=== PATIENT | female | born 1995 | race Two or more races ===

== ENCOUNTER 2022-08-18 08:55 | Day surgery (SDC) | payer MEDICAID ==
[~2022-08-18] VITALS: Ht 154.9 cm; Wt 53.8 kg
[2022-08-18] VITALS (18 sets, daily range): BP systolic 92–147; BP diastolic 40–87
[2022-08-18] MEDS ORDERED: OLAN2.5T28 PO (09:35)
[2022-08-18] MEDS ORDERED: CANNABIS (09:35)
[2022-08-18] MEDS ORDERED: POLY17PO10 PO (09:35)
[2022-08-18] MEDS ORDERED: ONDA-104 PO (09:35)
[2022-08-18] MEDS ORDERED: OMEP40CA21 PO (09:35)
[2022-08-18] MEDS ORDERED: IBUPROFEN 400 MG (09:36)
[2022-08-18] MEDS ORDERED: CHOL20002 PO (09:37)
[2022-08-18] MEDS ORDERED: chemotherapy (09:38)
[2022-08-18] MEDS ORDERED: normal saline 1000ml 1,000 ML IV SCH (09:55)
[2022-08-18 10:05] LABS: BASOPHILS # (AUTO) 0.1 X10'3 (0-0.2); BASOPHILS % (AUTO) 0.2 % (0-1); EOSINOPHILS % (AUTO) 0 % (0-6); HEMATOCRIT 33.3 % (35.0-45.0); LYMPHOCYTES % (AUTO) 4.4 % (21-51); MEAN CORPUSCULAR HEMOGLOBIN 29.1 PG (27.0-31.0); MEAN CORPUSCULAR HGB CONC 32.9 g/dL (33.0-36.5); MEAN CORPUSCULAR VOLUME 88.5 FL (78-98); MEAN PLATELET VOLUME 7.5 FL (7.4-10.4); MONOCYTES # (AUTO) 1.3 X10'3 (0-0.9); MONOCYTES % (AUTO) 5.6 % (2-12); NEUTROPHILS # (AUTO) 20.7 X10'3 (1.8-7.7); NEUTROPHILS % (AUTO) 89.8 % (42-75); PLATELET COUNT 195 X10'3 (140-440); RED BLOOD COUNT 3.76 X10'6 (4.20-5.60); RED CELL DISTRIBUTION WIDTH 20.9 % (11.5-14.5); WHITE BLOOD COUNT 23.1 X10'3 (4.5-11.0)
[2022-08-18] MEDS ORDERED: PEGF6DIS2 SQ (10:20)
[2022-08-18] MEDS ORDERED: GOSE3.6I SQ (10:20)
[2022-08-18 10:46] LABS: PLATELET ESTIMATE NORMAL
[2022-08-18 10:47] LABS: TEAR DROP CELLS 1+
[2022-08-18 10:48] LABS: ANISOCYTOSIS 3+; HYPOCHROMASIA 1+; MICROCYTOSIS 1+; POIKILOCYTOSIS 2+
[2022-08-18] MEDS ORDERED: midazolam 1 mg/ML 2ml injection ONE (12:12)
[2022-08-18] MEDS ORDERED: fentaNYL/PF 50MCG/1 ML 2ML syringe ONE (12:12)
[2022-08-18] MEDS ORDERED: diphenhydrAMINE 50 mg/ml inj ONE (12:22)
[2022-08-18] MEDS ORDERED: gelatin sponge, absorbable (Gelfoam 12-7MM) sponge TP ONE (12:35)
== END 2022-08-18 15:30 | disposition home or self-care (01) ==
LOC: SSTAY O 08:55
PROVIDERS: ATTEND Radiology Vascular & Interventional Radiology
DX: R19.07 Generalized intra-abdominal and pelvic swelling, mass and lump (principal); R16.0 Hepatomegaly, not elsewhere classified; Z85.038 Personal history of other malignant neoplasm of large intestine; Z88.1 Allergy status to other antibiotic agents; Z79.899 Other long term (current) drug therapy; Z98.890 Other specified postprocedural states
CPT/HCPCS: 36415; 47000; 49180; 77012; 85025; J1200; J2250; J3010; J7030; 85008; A4615